=== PATIENT | male | born 2000 | race Caucasian/White ===

== ENCOUNTER → 2023-06-06 | Outpatient (CLI) | payer OTHER | LOC: M PLARAD 09:49 | PROVIDERS: ATTEND Physician Assistant | DX: S93.411A Sprain of calcaneofibular ligament of right ankle, initial encounter (principal); X58.XXXA Exposure to other specified factors, initial encounter; Y92.9 Unspecified place or not applicable; M25.571 Pain in right ankle and joints of right foot ==